=== PATIENT | male | born 1995 | race Caucasian/White ===

== ENCOUNTER 2019-05-08 06:11 | Observation (INO) | payer OTHER ==
[2019-05-08] VITALS (33 sets, daily range): BP systolic 98–159; BP diastolic 50–98; PULSE 63–102; RESP 11–22
[~2019-05-08] VITALS: Ht 182.9 cm; Wt 126.6 kg
[2019-05-08] MEDS ORDERED: LACTATED RINGER'S 1,000 ML IV SCH (07:00)
[2019-05-08] MEDS ORDERED: CEFAZOLIN 2 GM/50 ML (PMX) 50 ML IVPB ONE (07:00)
--- NOTE | 2019-05-08 07:34 | PREAC ---
Date/Time of Note Date/Time of Note DATE: 05/08/19 TIME: 07:33 Anesthesia Eval and Record Evaluation Time Pre-Procedure Interview DATE: 05/08/19 TIME: 07:33 Age 23 Sex male NPO: 8 hrs Preoperative diagnosis L4-5, l5-s1 HNP with radiculopathy Planned procedure L4-5, L5-S1 microdiscectomy Past Medical History Past Medical History: Includes Cardio: HTN GI: Morbid obesity Surgery & Anesthesia Issues No known issue Meds Anticoagulation: No Beta Gamal within 24 hr: No Reason Beta Gamal not given: Pt. not on B-Gamal No Active Prescriptions or Reported Meds Current Medications Lactated Ringer's 1,000 ml @ 0 mls/hr Q0M IV ; Start 05/08/19 at 07:00 Meds reviewed: Yes Allergies Coded Allergies: amoxicillin (Verified Allergy, Unknown, 05/08/19) clavulanic acid (Verified Allergy, Unknown, 05/08/19) Allergies Reviewed: Yes Labs/Studies Labs Reviewed: Reviewed by anesthesiologist test: N/A Pre-procedure Exam Last vitals Vital Signs Date Temp Pulse Resp B/P (MAP) Pulse Ox O2 O2 Flow FiO2 Time Delivery Rate 05/08/19 97.2 82 20 159/98 97 Room Air 07:21 (118) Airway: Adequate mouth opening Mallampati: Mallampati II Teeth: Normal Lung: Normal Heart: Normal ASA Physical Status ASA physical status: 3 Emergency: None Planned Anesthetic General/MAC: ETT Planned Pain Management Parenteral pain med Pre-operative Attestations Prior to commencing anesthesia and surgery, the patient was re-evaluated, there was verification of: *The patient's identity *The results of appropriate recent lab work and preoperative vital signs *The above evaluation not changing prior to induction *Anesthetic plan, risk benefits, alternative and complications discussed with patient/family; questions answered; patient/family understands, accepts and wishes to proceed. NEPTALI MC MD May 08, 2019 07:34
--- NOTE | 2019-05-08 07:49 | HPN ---
Date/Time of Note Date/Time of Note DATE: 05/08/19 TIME: 07:49 Interval H&P Admission Note Pt. seen H&P reviewed: No system changes IRVING ADKINS MD May 08, 2019 07:49
[2019-05-08] MEDS ORDERED: LIDOCAINE 2% (SDV) 5 ML INJ ONE (07:52)
[2019-05-08] MEDS ORDERED: ROCURONIUM 50 MG INJ ONE ×2 (07:52→08:00)
[2019-05-08] MEDS ORDERED: GLYCOPYRROLATE 0.4 MG INJ ONE ×3 (07:52→08:00)
[2019-05-08] MEDS ORDERED: SUCCINYLCHOLINE CHLORIDE 100 MG/5 ML SYG IV ONE (07:52)
[2019-05-08] MEDS ORDERED: NEOSTIGMINE 3 MG/3 ML SYRINGE ONE ×2 (07:52→08:00)
[2019-05-08] MEDS ORDERED: PROPOFOL 20 ML ONE (07:52)
[2019-05-08] MEDS ORDERED: MEPERIDINE 100 MG INJ ONE (07:52)
[2019-05-08] MEDS ORDERED: POLYMYXIN/BACITRACIN 1L IRRIG ONE (07:58)
[2019-05-08] MEDS ORDERED: BUPIVACAINE 0.5%/EPI (SDV) 30 ML INJ ONE (07:58)
[2019-05-08] MEDS ORDERED: GELATIN SIZE 100 SPONGE ONE (07:58)
[2019-05-08] MEDS ORDERED: THROMBIN 5000 UNIT (RECOTHROM) VIAL ONE (07:58)
[2019-05-08] MEDS ORDERED: LABETALOL HCL 20MG INJ ONE (10:15)
[2019-05-08] MEDS ORDERED: NACL 0.9% 3 ML SYG IV SCH (12:00)
[2019-05-08] MEDS ORDERED: PROCHLORPERAZINE 10 MG TAB PO PRN (12:00)
[2019-05-08] MEDS ORDERED: hydrALAzine 20 MG INJ IV PRN (12:00)
[2019-05-08] MEDS ORDERED: MIDAZOLAM 1 MG/ML 2 ML INJ IV PRN (12:00)
[2019-05-08] MEDS ORDERED: HYDROCODONE/APAP (5/325) TAB PO PRN (12:00)
[2019-05-08] MEDS ORDERED: MEPERIDINE 25 MG INJ IV PRN (12:00)
[2019-05-08] MEDS ORDERED: HYDROmorphONE 1 MG/5 ML IV SYRINGE IV PRN ×3 (12:00)
[2019-05-08] MEDS ORDERED: NALOXONE (0.4 MG/ML) INJ IV PRN (12:00)
[2019-05-08] MEDS ORDERED: DIPHENHYDRAMINE 50 MG INJ IV PRN (12:00)
[2019-05-08] MEDS ORDERED: AL HYDROX/MG HYDROX/SIMETH 30 ML CUP PO PRN (12:00)
[2019-05-08] MEDS ORDERED: ONDANSETRON 4 MG INJ IV PRN ×2 (12:00)
[2019-05-08] MEDS ORDERED: METOCLOPRAMIDE 10 MG INJ IV PRN (12:00)
[2019-05-08] MEDS ORDERED: EPHEDrine 25 MG/5 ML SYG IV PRN (12:00)
[2019-05-08] MEDS ORDERED: CEFAZOLIN 1 GM/50 ML (PMX) 50 ML IVPB SCH (12:00)
[2019-05-08] MEDS ORDERED: ACETAMINOPHEN 325 MG TAB PO PRN (12:00)
[2019-05-08] MEDS ORDERED: FENTAnyl 50 MCG/ML VIAL IV PRN ×3 (12:00)
[2019-05-08] MEDS ORDERED: LABETALOL HCL 20MG INJ IV PRN (12:00)
--- NOTE | 2019-05-08 12:16 | OPR ---
Date/Time of Note Date/Time of Note DATE: 05/08/19 TIME: 12:00 Operative Report Free Text/Dictation DATE OF OPERATION: 05/08/2019 PREOPERATIVE DIAGNOSES: 1. Left sided L4-5 disk herniation with L5 radiculopathy 2. Left sided L5-S1 disk herniation with S1 radiculopathy 3. Morbid Obesity BMI 37.9 kg/m2 w/ HTN POSTOPERATIVE DIAGNOSES: 1. Chronic Left sided L4-5 disk herniation with calcified disk with L5 radiculopathy 2. Left sided L5-S1 disk herniation with S1 radiculopathy 3. Morbid Obesity BMI 37.9 kg/m2 w/ HTN OPERATION PERFORMED: 1.Left L4-5 hemilaminectomy, medial facetectomy with foraminotomy 2. Left sided L4-5 microdiskectomy 3.Left L5-S1 hemilaminectomy, medial facetectomy with foraminotomy 4.Left sided L5-S1 microdiskectomy 5. Interpretation of neuromonitoring SURGEON: Irving Adkins MD ANESTHESIA: General endotracheal ESTIMATED BLOOD LOSS: 50 mL SURGICAL INDICATION: The patient is a 23 year-old male who presents with a chroniv history of worsening left lower extremity pain and weakness. He was found to have a disc herniations on the left at L4-5 and L5-S1 which correlated well with his symptoms. The patient had failed conservative treatment. Risks, benefits, and alternatives to microdiscectomy were explained to the patient and they wished to proceed. Risks explained included but were not exclusive of bleeding, infection, cauda equina syndrome, nerve injury, dural tear, iatrogenic instability, recurrent disc herniation, fracture, vascular injury, bowel injury, stroke, heart attack and pulmonary embolism. DESCRIPTION OF TECHNIQUE: The patient was identified in the preoperative area and taken to the operating room. Rapid induction of general endotracheal anesthesia was performed. The patient was given 3 g of cefazolin for prophylaxis. The patient was then placed in the prone position on the Rob frame on a Romeo flat top table with all prominences well padded. The back was prepped and draped in the usual sterile manner. Using a spinal needle and intraoperative fluoroscopy, the appropriate levels were clearly identified (L4-5 and L5-S1). The skin was injected using 0.5% Marcaine with epinephrine. Longitudinal midline incision was then created using a 10 blade. Further di ssection through soft tissue was performed using electrocautery down to the spinous processes. The dissection was taken down the left side of the lamina and over the facet joint capsule. A self-retaining retractor was applied. Again, intraoperative fluoroscopy confirmed the appropriate level. The microscope was brought into use for microdissection. The left cephalad L4 lamina and portion of the medial facet was resected using a high-speed bur. A series of Kerrison rongeurs were then used to resect the ligamentum flavum. The left L5 pedicle was identified using a angel. The dura and traversing nerve root were both directly visualized. These were retracted gently in a medial direction. The extruded disc fragment was noted. A portion of this disk was noted to be calcified. The pseudo anulus was incised using an 11 blade. The calcified disk fragment was meticulously disected and freed from the dura using a nerve hook, and a series of kerrisons. Several loose fragments of the disk and the calcified disk fragment were removed. These were removed back to a stable portion of the disk. A nerve hook and a series of pituitaries were used to ensure removal of all loose fragments. The disk space was further pressurized using a using normal saline through a syringe to ensure that no loose fragments remained behind. Palpation with a ball-tip probe did not reveal any further stenosis. The traversing left L5 nerve root was noted to be significantly decompressed. Meticulous attention was paid towards hemostasis using FloSeal. Care was taken to remove all FloSeal prior to wound closure. The incision was extended distally. The dissection was taken down the left side of the lamina and over the facet joint capsule. A self-retaining retractor was applied. Again, intraoperative fluoroscopy confirmed the appropriate level. The microscope was brought into use for microdissection. The left L5 lamina and a p ortion of the medial facet was resected using a high-speed bur. A series of Kerrison rongeurs were then used to resect the ligamentum flavum. The left S1 pedicle was identified using a anegl. The dura and traversing nerve root were both directly visualized. These were retracted gently in a medial direction. Immediately, the extruded disc fragment was noted. The pseudo anulus was incised using an 11 blade. Several loose fragments of disk were removed. These were removed back to a stable portion of the disk. A nerve hook and a series of pituitaries were used to ensure removal of all loose fragments. The disk space was further pressurized using a using normal saline through a syringe to ensure that no loose fragments remained behind. Palpation with a ball-tip probe did not reveal any further stenosis. The traversing left S1 nerve root was noted to be significantly decompressed The fascia was then closed using 0 Vicryl in an interrupted fashion. A medium subfacial hemovac was placed. Subcutaneous tissue was closed using 2-0 Vicryl in an interrupted fashion. The skin was closed using a running 4-0 Monocryl stitch. The wound was dressed using Dermabond and a 4x4 sterile gauze. The patient was returned to the supine position. He was extubated immediately postoperatively and taken to the recovery room in stable condition. An addition 50 minutes was taken for this cases given the additional time needed for exposure given the patient body habitus (BMI 37.9 kg/m2). Additional time was also needed as a portion of the extruded disk at L4-5 that had migrated caudally was calcified and required meticulous dissection. COMPLICATIONS: None. Procedure Date: May 08, 2019 Preoperative Diagnosis 1. Left sided L4-5 disk herniation with L5 radiculopathy 2. Left sided L5-S1 disk herniation with S1 radiculopathy 3. Morbid Obesity BMI 37.9 kg/m2 w/ HTN Postoperative Diagnosis 1. Chronic Left sided L4-5 disk herniation with calcified disk with L5 radiculopathy 2. Left sided L5-S1 disk herniation with S1 radiculopathy 3. Morbid Obesity BMI 37.9 kg/m2 w/ HTN Operation/Procedure Performed 1.Left L4-5 hemilaminectomy, medial facetectomy with foraminotomy 2. Left sided L4-5 microdiskectomy 3.Left L5-S1 hemilaminectomy, medial facetectomy with foraminotomy 4.Left sided L5-S1 microdiskectomy 5. Interpretation of neuromonitoring Surgeon see signature line Invoice Control Clerk MAT Reyes Anesthesia Type: general Estimated Blood Loss: 50 - 100 ml's Transfusion none Specimen L4-5 and L5-S1 disk Grafts/Implants none Complications none Pt Condition Post Procedure: stable Disposition: PACU Procedure Description DESCRIPTION OF TECHNIQUE: The patient was identified in the preoperative area and taken to the operating room. Rapid induction of general endotracheal anesthesia was performed. The patient was given 3 g of cefazolin for prophylaxis. The patient was then placed in the prone position on the Rob frame on a Romeo flat top table with all prominences well padded. The back was prepped and draped in the usual sterile manner. Using a spinal needle and intraoperative fluoroscopy, the appropriate levels were clearly identified (L4-5 and L5-S1). The skin was injected using 0.5% Marcaine with epinephrine. Longitudinal midline incision was then created using a 10 blade. Further dissection through soft tissue was performed using electrocautery down to the spinous processes. The dissection was taken down the left side of the lamina and over the facet joint capsule. A self-retaining retractor was applied. Again, intraoperative fluoroscopy confirmed the appropriate level. The microscope was brought into use for microdissection. The left cephalad L4 lamina and portion of the medial facet was resected using a high-speed bur. A series of Kerrison rongeurs were then used to resect the ligamentum flavum. The left L5 pedicle was identified using a angel. The dura and traversing nerve root were both directly visualized. These were retracted gently in a medial direction. The extruded disc fragment was noted. A portion of this disk was noted to be calcified. The pseudo anulus was incised using an 11 blade. The calcified disk fragment was meticulously disected and freed from the dura using a nerve hook, and a series of kerrisons. Several loose fragments of the disk and the calcified disk fragment were removed. These were removed back to a stable portion of the disk. A nerve hook and a series of pituitaries were used to ensure removal of all loose fragments. The disk space was further pressurized using a using normal saline through a syringe to ensure that no loose fragments remained behind. Palpation with a ball-tip probe did not reveal any further stenosis. The traversing left L5 nerve root was noted to be significantly decompressed. Meticulous attention was paid towards hemostasis using FloSeal. Care was taken to remove all FloSeal prior to wound closure. The incision was extended distally. The dissection was taken down the left side of the lamina and over the facet joint capsule. A self-retaining retractor was applied. Again, intraoperative fluoroscopy confirmed the appropriate level. The microscope was brought into use for microdissection. The left L5 lamina and a portion of the medial facet was resected using a high-speed bur. A series of Kerrison rongeurs were then used to resect the ligamentum flavum. The left S1 pedicle was identified using a angel. The dura and traversing nerve root were both directly visualized. These were retracted gently in a medial direction. Immediately, the extruded disc fragment was noted. The pseudo anulus was incised using an 11 blade. Several loose fragments of disk were removed. These were removed back to a stable portion of the disk. A nerve hook and a series of pituitaries were used to ensure removal of all loose fragments. The disk space was further pressurized using a using normal saline through a syringe to ensure that no loose fragments remained behind. Palpation with a ball-tip probe did not reveal any further stenosis. The traversing left S1 nerve root was noted to be significantly decompressed The fascia was then closed using 0 Vicryl in an interrupted fashion. A medium subfacial hemovac was placed. Subcutaneous tissue was closed using 2-0 Vicryl in an interrupted fashion. The skin was closed using a running 4-0 Monocryl stitch. The wound was dressed using Dermabond and a 4x4 sterile gauze. The patient was returned to the supine position. He was extubated immediately postoperatively and taken to the recovery room in stable condition. An addition 50 minutes was taken for this cases given the additional time needed for exposure given the patient body habitus (BMI 37.9 kg/m2). Additional time wa s also needed as a portion of the extruded disk at L4-5 that had migrated caudally was calcified and required meticulous dissection. IRVING ADKINS MD May 08, 2019 12:13
[2019-05-08] MEDS ORDERED: HYDROmorphONE 0.2 MG/ML PCA ONE (13:08)
--- NOTE | 2019-05-08 13:34 | PAC ---
Date/Time of Note Date/Time of Note DATE: 05/08/19 TIME: 13:34 Post-Anesthesia Notes Post-Anesthesia Note Last documented vital signs Vital Signs Date Temp Pulse Resp B/P (MAP) Pulse Ox O2 O2 Flow FiO2 Time Delivery Rate 05/08/19 Nasal 3.0 13:15 Cannula 05/08/19 82 20 124/59 98 12:45 (80) 05/08/19 98.0 12:25 Activity: WNL Respiratory function: WNL Cardiovascular function: WNL Mental status: Baseline Pain reasonably controlled: Yes Hydration appropriate: Yes Nausea/Vomiting absent: Yes Comments BT: 98.5 NEPTALI MC MD May 08, 2019 13:34
[2019-05-08] MEDS: SOD CHLORIDE 0.9% 1,000 ML IV SCH (16:28)
[2019-05-08] MEDS: CEFAZOLIN 1 GM/50 ML (PMX) 50 ML IVPB SCH ×2 (16:28→23:18)
--- NOTE | 2019-05-08 17:08 | CONS ---
DATE OF ADMISSION: 05/08/2019 DATE OF CONSULTATION: Thank you very much for allowing me to evaluate this 23-year-old male who just underwent lumbar back surgery. HISTORICAL EVENTS: As you well know, this patient has had a history of several months of low back pa in and related pain involving the left leg. Because of persistence of the same and failure of conser vative therapy to allow improvement, he elected to proceed with recommended surgery. Postoperatively , he, in recovery, is quite comfortable without cough, wheezing, shortness of breath, nausea, vomitin g, abdominal or chest pain. PAST MEDICAL HISTORY: Includes hypertension and hyperlipidemia. Preoperative cardiac eval was unrev ealing in April of this year. FAMILY HISTORY: Positive for diabetes. SOCIAL HISTORY: He rarely smokes, rarely drinks alcohol. MEDICATIONS: Prior to admission: 1. Fenofibrate 145 mg per day. 2. Lisinopril 20 mg per day. PHYSICAL EXAMINATION: GENERAL: Comfortable appearing male in no acute distress. VITAL SIGNS: BP 122/78, pulse 70, respirations were 18. He was afebrile. EYES: Extraocular muscles were full. NOSE, MOUTH, AND THROAT: Normal. NECK: Supple. There was no jugular venous distention, thyroid enlargement or adenopathy. Carotids 2+. LUNGS: Clear. HEART: Rhythm regular, no murmur. ABDOMEN: Nontender. Liver and spleen were not palpable. No mass or tenderness were noted. EXTREMITIES: No edema. Calves nontender. Pulses 2+. IMPRESSION: 1. Stable postoperative lumbar back surgery. 2. History of hypertension. Blood pressure medications will be resumed. 3. Hyperlipidemia. TriCor to be resumed. Will follow daily and observe for signs and symptoms of thromboembolic disease. Dictated By: NICOLASA LEO MD MR/NTS Conf#: [id number] DID#: [id number] CC: IRVING ADKINS MD;*EndCC*
[2019-05-08] MEDS: HYDROmorphONE 0.5 MG/0.5 ML SYG IV PRN ×2 (19:52→23:25)
[2019-05-08] MEDS: HYDROCODONE/APAP (5/325) TAB PO PRN (20:29)
[2019-05-09] MEDS: HYDROCODONE/APAP (5/325) TAB PO PRN ×3 (00:40→14:22)
[2019-05-09] MEDS: HYDROmorphONE 0.5 MG/0.5 ML SYG IV PRN ×4 (03:53→16:22)
[2019-05-09] MEDS: CEFAZOLIN 1 GM/50 ML (PMX) 50 ML IVPB SCH ×2 (05:27→10:33)
[2019-05-09] MEDS: SOD CHLORIDE 0.9% 1,000 ML IV SCH (05:31)
[2019-05-09 07:17] VITALS: BP 105/60; PULSE 100; RESP 14
[2019-05-09] MEDS ORDERED: DOCUSATE SODIUM 100 MG CAP PO SCH (09:00)
[2019-05-09] MEDS ORDERED: LISINOPRIL 10 MG TAB PO SCH (09:00)
[2019-05-09] MEDS ORDERED: FENOFIBRATE 145 MG TAB PO SCH (09:00)
--- NOTE | 2019-05-09 09:37 | PN ---
Date/Time of Note Date/Time of Note DATE: 05/09/19 TIME: 09:32 Assessment/Plan VTE Prophylaxis Risk score (from Nsg)>0 risk: 5 SCD applied (from Nsg): Yes Pharmacological prophylaxis: other (SCDs) Pharm contraindication: low risk/ambulating Lines/Catheters IV Catheter Type (from Nrsg): Peripheral IV Assessment/Plan Assessment/Plan Mr. Damon is a 23yo M with a PMHx significant for Obesity, HTN, HLD who presented for L side L4-5, L5-S1 disk herniation with radiculopathy now s/p lumbar surgery. 1. L sided disc herniation s/p lumbar surgery. - Management per Spine surgery. - PT. - Pain meds, as written. Result Diagram: 05/09/1944005/09/19440 Results 24hrs Laboratory Tests Test 05/09/19 04:41 05/09/19 07:17 Hemoglobin 11.9 L Hematocrit 37.0 L Sodium Level 136 Potassium Level 3.9 Chloride Level 100 Carbon Dioxide Level 28 Anion Gap 8 Blood Urea Nitrogen 9 Creatinine 0.82 Est Glomerular Filtrat Rate mL/min > 60 Glucose Level 104 Calcium Level 8.2 L Lab Scanned Report REFERENCE LAB Subjective 24 Hr Interval Summary Free Text/Dictation No overnight events. Pt endorses pain that is being managed. Exam/Review of Systems Exam Vitals Vital Signs Date Temp Pulse Resp B/P (MAP) Pulse Ox O2 O2 Flow FiO2 Time Delivery Rate 05/09/19 97.9 100 14 105/60 100 Nasal 07:17 (75) Cannula 05/08/19 2.0 17:15 Intake and Output 05/08/19 05/08/19 05/09/19 1515:00 23:00 07:00 IntakeIntake Total 1000 ml 550 ml 1600 ml OutputOutput Total 70 ml BalanceBalance 930 ml 550 ml 1600 ml Exam General: Obese male, well appearing. Getting up to work with PT. CV: Regular rate and rhythm. Pulm: CTAB. GI: +BS, S/NT/ND. Obese abdomen. Extrem: No LE edema. Neuro: AO x 3, CN II-XII grossly intact, Back: Drain in place with sanguinous output noted, bandaging. Clean/dry/intact. Results Results 24hrs Laboratory Tests Test 05/09/19 04:41 05/09/19 07:17 Hemoglobin 11.9 L Hematocrit 37.0 L Sodium Level 136 Potassium Level 3.9 Chloride Level 100 Carbon Dioxide Level 28 Anion Gap 8 Blood Urea Nitrogen 9 Creatinine 0.82 Est Glomerular Filtrat Rate mL/min > 60 Glucose Level 104 Calcium Level 8.2 L Lab Scanned Report REFERENCE LAB Medications Medication Current Medications Lactated Ringer's 1,000 ml @ 0 mls/hr Q0M IV ; Start 05/08/19 at 07:00 Acetaminophen/ Hydrocodone Bitart ([place] (5/325)) 1 tab Q4H PRN PO .PAIN 1-5; Start 05/08/19 at 12:00 Acetaminophen/ Hydrocodone Bitart ([place] (5/325)) 2 tab Q4H PRN PO .PAIN 6-10 Last administered on 05/09/19at 09:07; Admin Dose 2 TAB; Start 05/08/19 at 12:00 Prochlorperazine (Compazine) 10 mg Q4H PRN PO NAUSEA/VOMITING; Start 05/08/19 at 12:00 Ondansetron HCl (Zofran Inj) 4 mg Q6H PRN IV NAUSEA/VOMITING; Start 05/08/19 at 12:00 Al Hydrox/Mg Hydrox/Simethicone (Mag-Al Plus) 15 ml Q4H PRN PO .CONSTIPATION; Start 05/08/19 at 12:00 Docusate Sodium (Colace) 100 mg BID PO Last administered on 05/09/19at 08:45; Admin Dose 100 MG; Start 05/09/19 at 09:00 Acetaminophen (Tylenol Tab) 650 mg Q4H PRN PO TEMP GREATER THAN 101F OR YADAV; Start 05/08/19 at 12:00 IV Flush (NS 3 ml) 3 ml PER PROTOCOL IV ; Start 05/08/19 at 12:00 Naloxone HCl (Narcan) 0.2 mg Q2M PRN IV RR 8 BREATHS/MIN OR LESS; Start 05/08/19 at 12:00 Hydromorphone HCl (Dilaudid) 0.5 mg Q3H PRN IV SEVERE PAIN LEVEL 7-10 Last administered on 05/09/19at 07:30; Admin Dose 0.5 MG; Start 05/08/19 at 12:00 Lisinopril (Zestril) 10 mg DAILY PO Last administered on 05/09/19at 08:45; Admin Dose 10 MG; Start 05/09/19 at 09:00 Fenofibrate (Tricor) 145 mg DAILY PO Last administered on 05/09/19at 08:45; Admin Dose 145 MG; Start 05/09/19 at 09:00 Sodium Chloride 1,000 ml @ 80 mls/hr [id number] IV Last administered on 05/09/19at 05:31; Admin Dose 80 MLS/HR; Start 05/08/19 at 13:00 Cefazolin Sodium 50 ml @ 100 mls/hr Q6H IVPB Last administered on 05/09/19at 05:27; Admin Dose 100 MLS/HR; Start 05/08/19 at 17:00; Stop 05/09/19 at 11:29 TRESA LEWIS MD May 09, 2019 09:37
--- NOTE | 2019-05-09 10:17 | PDOCDIS ---
Discharge Instructions CONDITION [id number] Patient Condition: [id number] Good HOME CARE INSTRUCTIONS: [id number] Diet Instructions: [id number] Regular ACTIVITY: [id number] Activity Restrictions: [id number] Avoid heavy lifting Avoid Heavy Housework [id number] Bathing Restrictions: [id number] Shower FOLLOW UP/APPOINTMENTS Follow-up Plan Follow-up with Dr. Adkins in 2 weeks IRVING ADKINS MD May 09, 2019 10:17
[2019-05-09 14:09] VITALS: BP 127/59; PULSE 103; RESP 14
== END 2019-05-09 18:51 | disposition home or self-care (01) ==
LOC: SDS 06:11 → REC 11:58 → SDS 11:58 → MS1 14:15
PROVIDERS: ADMIT Orthopaedic Surgery; ATTEND Orthopaedic Surgery
DX: M51.16 Intervertebral disc disorders with radiculopathy, lumbar region (principal); M51.17 Intervertebral disc disorders with radiculopathy, lumbosacral region; E66.01 Morbid (severe) obesity due to excess calories; Z68.37 Body mass index [BMI] 37.0-37.9, adult; I10 Essential (primary) hypertension; E78.5 Hyperlipidemia, unspecified
CPT/HCPCS: 63030; 63035; 72110; 80048; 85014; 85018; 88304; 97116; 97161; 97530; J0690; J1170; J2175; J2405; J2710; J3010; J7030; Z7500; Z7512; Z7610; G0378